=== PATIENT | male | born 1990 | race Caucasian/White ===

== ENCOUNTER → 2016-06-28 | Outpatient (REF) | payer BC ==
[~2016-06-28] MED LIST: RISP1TAB41 PO; TRAZ50TA4 PO
[2016-06-29 12:12] LABS: FREE T4 1.42 NG/DL (0.76-1.46)
== END ==
LOC: M LABDRAWC 11:24
PROVIDERS: ATTEND Physician Assistant Medical
DX: E06.3 Autoimmune thyroiditis (principal)

== ENCOUNTER → 2016-10-10 | Outpatient (REF) | payer BC ==
[2016-10-11 12:07] LABS: FREE T4 1.51 NG/DL (0.76-1.46)
== END ==
LOC: M SFHCCLAY 15:28
PROVIDERS: ATTEND Family Medicine
DX: E03.9 Hypothyroidism, unspecified (principal)

== ENCOUNTER → 2018-01-21 | Outpatient (REF) | payer BC, MEDICAID ==
[2018-01-21 17:47] LABS: FREE T4 1.18 NG/DL (0.76-1.46)
== END ==
LOC: M SFHCCLAY 08:37
DX: E03.9 Hypothyroidism, unspecified (principal)
CPT/HCPCS: 84443

== ENCOUNTER → 2018-02-26 | Outpatient (CLI) | payer MEDICAID | LOC: M CLY 09:48 | DX: R07.9 Chest pain, unspecified (principal) ==

== ENCOUNTER 2021-11-13 22:12 | Emergency (ER) | payer MEDICAID, OTHER ==
[~2021-11-13] VITALS: Ht 188 cm; Wt 90.9 kg
[~2021-11-13 22:12] MED LIST changes: -RISP1TAB41 PO; +RISP1TAB42 PO; +TRAZ-252 PO; -TRAZ50TA4 PO
[2021-11-13 23:13] LABS: HEMATOCRIT 48.6 % (42.0-52.0); HEMOGLOBIN 16.7 g/dl (13.5-17.5); MEAN CORPUSCULAR HEMOGLOBIN 34.4 pg (27.0-33.0); MEAN CORPUSCULAR HGB CONC 34.4 g/dl (32.0-36.5); MEAN CORPUSCULAR VOLUME 100.2 fl (80.0-96.0); PLATELET COUNT, AUTOMATED 408 10^3/uL (150-450); RED BLOOD COUNT 4.85 10^6/uL (4.30-6.10); WHITE BLOOD COUNT 6.4 10^3/uL (4.0-10.0)
[2021-11-13 23:33] LABS: AMPHETAMINES LEVEL URINE NEGATIVE (NEGATIVE); BARBITURATES URINE NEGATIVE (NEGATIVE); BENZODIAZEPINES URINE NEGATIVE (NEGATIVE); CANNABINOIDS URINE POSITIVE (NEGATIVE); COCAINE METABOLITE URINE NEGATIVE (NEGATIVE); METHADONE URINE NEGATIVE (NEGATIVE); OPIATES URINE NEGATIVE (NEGATIVE); PHENCYCLIDINE URINE NEGATIVE (NEGATIVE)
[2021-11-13 23:44] LABS: ACETAMINOPHEN LEVEL < 2.0 UG/ML (10.0-30.0); ALBUMIN 4.1 GM/DL (3.2-5.2); ALT/SGPT 43 U/L (12-78); BILIRUBIN,DIRECT < 0.1 MG/DL (0.0-0.2); BILIRUBIN,TOTAL 0.2 MG/DL (0.2-1.0); BLOOD UREA NITROGEN 5 MG/DL (7-18); CALCIUM LEVEL 9.6 MG/DL (8.5-10.1); CARBON DIOXIDE LEVEL 30 MEQ/L (21-32); CHLORIDE LEVEL 108 MEQ/L (98-107); ETHYL ALCOHOL (ETHANOL) 0.346 % (0.000-0.010); GLOMERULAR FILTRATION RATE > 60.0 (>60); GLUCOSE, FASTING 90 MG/DL (70-100); POTASSIUM SERUM 3.9 MEQ/L (3.5-5.1); SALICYLATE LEVEL 3.9 MG/DL (5.0-30.0); SODIUM LEVEL 143 MEQ/L (136-145); TOTAL PROTEIN 7.7 GM/DL (6.4-8.2)
[2021-11-13 23:47] LABS: RSV AMPLIFICATION NEGATIVE (NEGATIVE)
[2021-11-14 14:28] VITALS: BP 134/78
== END 2021-11-14 14:40 | disposition home or self-care (01) ==
LOC: M ED 22:12
DX: F10.129 Alcohol abuse with intoxication, unspecified (principal); F32.A Depression, unspecified; F17.200 Nicotine dependence, unspecified, uncomplicated; Z88.0 Allergy status to penicillin; Z88.1 Allergy status to other antibiotic agents; Z79.899 Other long term (current) drug therapy

== ENCOUNTER 2022-12-07 23:51 | Emergency (ER) | payer OTHER ==
[~2022-12-07] VITALS: Ht 188 cm; Wt 100.0 kg
[2022-12-08 00:02] VITALS: BP 142/104; TEMP 97.8; O2SAT 95
[2022-12-08 00:44] LABS: BASO % 0.6 % (0.0-1.0); EOS # 0.1 10^3/uL (0.0-0.5); EOS % 1.9 % (0.0-3.0); HEMATOCRIT 42.3 % (42.0-52.0); LYMPH # 2.1 10^3/uL (1.5-5.0); LYMPH % 39.5 % (24.0-44.0); MEAN CORPUSCULAR HEMOGLOBIN 33.9 pg (27.0-33.0); MEAN CORPUSCULAR HGB CONC 35.5 g/dl (32.0-36.5); MEAN CORPUSCULAR VOLUME 95.7 fl (80.0-96.0); MONO # 0.7 10^3/uL (0.0-0.8); MONO % 13.4 % (2.0-8.0); NEUTROPHILS # 2.3 10^3/uL (1.5-8.5); NEUTROPHILS % 43.3 % (36.0-66.0); PLATELET COUNT, AUTOMATED 247 10^3/uL (150-450); RED BLOOD COUNT 4.42 10^6/uL (4.30-6.10); WHITE BLOOD COUNT 5.2 10^3/uL (4.0-10.0)
[2022-12-08 01:00] LABS: BLOOD UREA NITROGEN 7 MG/DL (9-23); CALCIUM LEVEL 8.9 MG/DL (8.5-10.1); CARBON DIOXIDE LEVEL 25 MMOL/L (20-31); CHLORIDE LEVEL 106 MMOL/L (98-107); CREATININE FOR GFR 0.79 MG/DL (0.70-1.30); GLOMERULAR FILTRATION RATE > 60.0 (>60); GLUCOSE, FASTING 86 MG/DL (60-100); POTASSIUM SERUM 3.6 MMOL/L (3.5-5.1); SODIUM LEVEL 142 MMOL/L (136-145)
== END 2022-12-08 01:03 | disposition left against medical advice (07) ==
LOC: M ED 23:51
DX: Z53.21 Procedure and treatment not carried out due to patient leaving prior to being seen by health care provider (principal)

== ENCOUNTER → 2023-10-10 | Outpatient (REF) | payer OTHER, SELFPAY ==
[2023-10-10 18:44] LABS: BASO % 0.4 % (0.0-1.0); EOS # 0.3 10^3/uL (0.0-0.5); EOS % 3.3 % (0.0-3.0); HEMATOCRIT 40.9 % (42.0-52.0); HEMOGLOBIN 14.3 g/dl (13.5-17.5); LYMPH # 2.7 10^3/uL (1.5-5.0); MEAN CORPUSCULAR HEMOGLOBIN 31.2 pg (27.0-33.0); MEAN CORPUSCULAR VOLUME 89.1 fl (80.0-96.0); MONO # 0.9 10^3/uL (0.0-0.8); MONO % 10.6 % (2.0-8.0); NEUTROPHILS # 4.2 10^3/uL (1.5-8.5); NEUTROPHILS % 51.6 % (36.0-66.0); PLATELET COUNT, AUTOMATED 316 10^3/uL (150-450); RED BLOOD COUNT 4.59 10^6/uL (4.30-6.10); WHITE BLOOD COUNT 8.1 10^3/uL (4.0-10.0)
[2023-10-10 19:21] LABS: ALBUMIN 4.7 G/DL (3.2-5.2); ALKALINE PHOSPHATASE 82 U/L (46-116); ALT/SGPT 49 U/L (7.0-40); AST/SGOT 34 U/L (<34); BILIRUBIN,TOTAL 0.4 MG/DL (0.3-1.2); BLOOD UREA NITROGEN 14 MG/DL (9-23); CALCIUM LEVEL 10.2 MG/DL (8.5-10.1); CARBON DIOXIDE LEVEL 26 MMOL/L (20-31); CHLORIDE LEVEL 102 MMOL/L (98-107); CREATININE FOR GFR 1.14 MG/DL (0.70-1.30); GLOMERULAR FILTRATION RATE > 60.0 (>60); GLUCOSE, FASTING 83 MG/DL (60-100); SODIUM LEVEL 138 MMOL/L (136-145); TOTAL PROTEIN 7.9 G/DL (5.7-8.2)
[2023-10-10 19:25] LABS: TESTOSTERONE 181 NG/DL (241-827)
[2023-10-10 19:38] LABS: THYROID STIMULATING HORMONE > 150.000 uIU/ML (0.55-4.78)
== END ==
LOC: M LAB REF 16:21
PROVIDERS: ATTEND Family Medicine Addiction Medicine
DX: E03.9 Hypothyroidism, unspecified (principal); R53.83 Other fatigue

== ENCOUNTER → 2023-10-22 | Outpatient (REF) | payer OTHER, SELFPAY | LOC: M LAB REF 11:44 | PROVIDERS: ATTEND Family Medicine Addiction Medicine | DX: R89.1 Abnormal level of hormones in specimens from other organs, systems and tissues (principal) ==

== ENCOUNTER → 2023-10-28 | Outpatient (REF) | payer OTHER, SELFPAY | LOC: M LAB REF 11:44 | PROVIDERS: ATTEND Family Medicine Addiction Medicine | DX: E29.1 Testicular hypofunction (principal) ==

== ENCOUNTER → 2024-12-07 | Outpatient (REF) | payer SELFPAY ==
[2024-12-07 17:22] LABS: BASO # 0.0 10^3/uL (0.0-0.2); BASO % 0.3 % (0.0-1.0); EOS # 0.2 10^3/uL (0.0-0.5); EOS % 2.5 % (0.0-3.0); LYMPH # 2.6 10^3/uL (1.5-5.0); LYMPH % 35.8 % (24.0-44.0); MONO # 0.6 10^3/uL (0.0-0.8); MONO % 8.7 % (2.0-8.0); NEUTROPHILS # 3.7 10^3/uL (1.5-8.5); NEUTROPHILS % 52.1 % (36.0-66.0); PLATELET COUNT, AUTOMATED 330 10^3/uL (150-450)
[2024-12-07 17:51] LABS: ALT/SGPT 36.0 U/L (7.0-40); AST/SGOT 29.0 U/L (<34); CALCIUM LEVEL 10.2 MG/DL (8.5-10.1); CARBON DIOXIDE LEVEL 26.0 MMOL/L (20-31); CHLORIDE LEVEL 101.0 MMOL/L (98-107); CREATININE FOR GFR 1.25 MG/DL (0.70-1.30); GLOMERULAR FILTRATION RATE 78.0 (>60); POTASSIUM SERUM 4.7 MMOL/L (3.5-5.1); SODIUM LEVEL 140.0 MMOL/L (136-145)
[2024-12-07 17:52] LABS: TESTOSTERONE 234.0 NG/DL (241-827)
== END ==
LOC: M LAB REF 16:29
PROVIDERS: ATTEND Family Medicine Addiction Medicine
DX: R79.89 Other specified abnormal findings of blood chemistry (principal); E03.9 Hypothyroidism, unspecified

== ENCOUNTER → 2025-03-10 | Outpatient (REF) | payer OTHER ==
[2025-03-10 15:25] LABS: ALT/SGPT 63 U/L (7.0-40); AST/SGOT 37 U/L (<34); CALCIUM LEVEL 9.3 MG/DL (8.5-10.1); CARBON DIOXIDE LEVEL 29 MMOL/L (20-31); CHLORIDE LEVEL 103 MMOL/L (98-107); CHOLESTEROL LEVEL 188 MG/DL (<200); CHOLESTEROL RISK RATIO 5.89 (<5); CREATININE FOR GFR 0.96 MG/DL (0.70-1.30); GLOMERULAR FILTRATION RATE > 90.0 (>60); LDL CHOLESTEROL 120.7 MG/DL (<100); NON-HDL-C 156.1 MG/DL; POTASSIUM SERUM 4.6 MMOL/L (3.5-5.1); SODIUM LEVEL 138 MMOL/L (136-145); TRIGLYCERIDES LEVEL 177 MG/DL (<150)
[2025-03-10 15:27] LABS: TESTOSTERONE 265 NG/DL (241-827)
== END ==
LOC: M LAB REF 14:18
PROVIDERS: ATTEND Family Medicine Addiction Medicine
DX: E03.9 Hypothyroidism, unspecified (principal); R79.89 Other specified abnormal findings of blood chemistry